=== PATIENT | male | born 1965 | race Asian ===

== ENCOUNTER 2019-10-30 15:05 | Emergency (ER) | payer OTHER ==
[~2019-10-30] VITALS: Ht 167.6 cm; Wt 61.2 kg
[2019-10-30 17:04] VITALS: BP 125/79
== END 2019-10-30 17:04 | disposition home or self-care (01) ==
LOC: ED 15:05
DX: S39.012A Strain of muscle, fascia and tendon of lower back, initial encounter (principal); M54.42 Lumbago with sciatica, left side; F17.210 Nicotine dependence, cigarettes, uncomplicated; X50.0XXA Overexertion from strenuous movement or load, initial encounter; Y93.89 Activity, other specified; Y92.89 Other specified places as the place of occurrence of the external cause; Y99.8 Other external cause status

== ENCOUNTER 2019-11-05 15:54 | Emergency (ER) | payer OTHER ==
[~2019-11-05] VITALS: Ht 167.6 cm; Wt 62.1 kg
[2019-11-05 16:04] VITALS: BP 138/83; Ht 167.6 cm; Wt 62.1 kg
== END 2019-11-05 17:27 | disposition home or self-care (01) ==
LOC: ED 15:54
DX: M54.42 Lumbago with sciatica, left side (principal); F17.210 Nicotine dependence, cigarettes, uncomplicated
CPT/HCPCS: 99406